=== PATIENT | female | born 1995 | race African-American/Black ===

== ENCOUNTER 2017-04-17 12:42 | Emergency (ER) | payer OTHER ==
--- NOTE | ~2017-04-17 | CT2 ---
[facility] A Service of [facility] & [facility] RADIOLOGY TEXT RESULTS PATIENT: LEANA SMITH LOCATION: SED : [birth year] UNIT #: [id number] AGE: [address]: Sam Mejias MD SEX: F ORDER DR: [id number] [address] [id number] [id number] MR#: [id number] Acc #: [id number] NAME: LEANA SMITH : 1995 SEX: F STUDY DATE/TIME: 04/17/2017 14:30 UNIT: SED ROOM: STUDY DESCRIPTION: CT Abd and Pelv W Cont Attending Physician: Sam Mejias M.D. Ordering Physician: Sam Mejias M.D. Primary Care Physician: Kiera Nieto M.D. MEDICAL IMAGING REPORT This report is preliminary unless electronic signature is present. EXAM CT abdomen and pelvis 04/17/2017 HISTORY Pain. Pelvic pain on and off for [address] abdomen and pelvis performed with intravenous administration of 100 mL Isovue-370. Enteric contrast not administered. Study limited in the absence of enteric contrast. No comparisons. This CT exam was performed with one or more of the following radiation dose reduction techniques: automatic exposure control, adjustment of mA and/or kV according to patient size, and iterative reconstruction. FINDINGS Inferior heart and pericardium unremarkable. Lung bases clear. Liver, gallbladder, spleen, pancreas, adrenal glands, kidneys unremarkable. CT Pelvis: No inguinal adenopathy. Urinary bladder unremarkable. Trace amount of free fluid in pelvis. Likely physiologic in nature and not a drainable fluid collection. Uterus unremarkable. Small subcentimeter follicular cysts suggested in bilateral otherwise unremarkable ovaries. No pelvic or retroperitoneal adenopathy. Distal esophagus, stomach, small bowel, appendix: unremarkable. Vascular structures unremarkable. Bony structures show no acute abnormality. Mild levoscoliosis may be positional in nature. IMPRESSION 1. Trace amount of free fluid in the pelvis. Likely physiologic in nature and not a drainable fluid collection. Pelvic structures otherwise notable only for tiny bilateral ovarian follicular cysts. No suspicious adnexal findings. 2. Gallbladder, pancreas, kidneys, appendix normal. [facility] A Service of [facility] & [facility] RADIOLOGY TEXT RESULTS PATIENT: LEANA SMITH [place] [facility] [place] [birth year] UNIT #: [id number] AGE: [address]: Sam Mejias MD SEX: F ORDER DR: 3. Remainder of alimentary canal unremarkable. 4. See remainder of incidental findings in body of report above. 1. Dictated by... Evaristo Mccabe M.D. THIS IS AN ELECTRONICALLY VERIFIED REPORT Evaristo Mccabe M.D. at 04/18/2017 7:52 PM Donna TD: 04/17/2017 16:29 JOB #: [id number] MEDICAL IMAGING REPORT Page 1 of 1
[~2017-04-17 12:42] MED LIST: BUSPAR; IBUPROFEN400 MG PO; VISTARIL; ZOFRAN ODT4 MG; ZOFRANODT PO; ZOLOFT
[2017-04-17 13:17] LABS: URINE SOURCE CLEAN CATCH
[2017-04-17 13:20] LABS: URINE APPEARANCE HAZY; URINE BILIRUBIN NEG (NEG); URINE BLOOD 3+ (NEG); URINE COLOR YELLOW; URINE GLUCOSE NEG (NORM); URINE KETONE NEG (NEG); URINE LEUKOCYTE ESTERASE NEG (NEG); URINE NITRATE NEG (NEG); URINE PH 5.5 (5-8); URINE PROTEIN 1+ (NEG); URINE SPECIFIC GRAVITY >=1.030 (1.003-1.035)
[2017-04-17 13:24] LABS: MICRO INDICATED? YES
[2017-04-17 13:25] LABS: CULTURE INDICATED? YES; URINE BACTERIA 1+ (NEG); URINE MUCUS PRESENT; URINE RBC 50-100 /[HPF] (0-2); URINE SQUAMOUS EPITHELIAL CELL MODERATE /[HPF]
[2017-04-17 13:58] LABS: BASOPHIL# 0.1 X10e3 (0-0.3); BASOPHIL% 1.4 % (0-2.5); EOSINOPHIL# 0.2 X10e3 (0-0.7); EOSINOPHIL% 3.4 % (0.0-7.0); HEMATOCRIT 38.7 % (35.0-45.0); LYMPHOCYTE# 2.5 X10e3 (1.0-3.5); LYMPHOCYTE% 45.1 % (17.0-45.0); MEAN CELL VOLUME 83.7 FL (83-96); MEAN CORPUSCULAR HEMOGLOBIN 28.1 PG (28-34); MEAN CORPUSCULAR HGB CONC 33.6 g/dL (30-36); MEAN PLATELET VOLUME 7.7 FL (6.5-11.5); MONOCYTE# 0.4 X10e3 (0-1.0); MONOCYTE% 7.9 % (3.0-12.0); NEUTROPHIL# 2.4 X10e3 (1.5-7.1); NEUTROPHIL% 42.2 % (40-75); PLATELET COUNT 291 X10e3 (140-420); RED BLOOD COUNT 4.63 X10e (3.90-5.30); RED CELL DISTRIBUTION WIDTH 14.9 % (11.0-15.5); WHITE BLOOD COUNT 5.6 X10e3 (4.0-10.5)
[2017-04-17 14:00] LABS: DIFF IND NO
[2017-04-17 14:19] LABS: BILIRUBIN, DIRECT 0.2 mg/dL (0.0-0.2); BILIRUBIN,INDIRECT 0.2 mg/dL (0.0-0.9); BILIRUBIN,TOTAL 0.4 mg/dL (0.2-2.0); BUN/CREATININE RATIO 16.25; CALCIUM SERUM 9.6 mg/dL (8.4-10.2); CREATININE SERUM 0.8 mg/dL (0.6-1.4); GLOM FILT RATE Estimated 123.1 mL/min (>60); POTASSIUM 3.6 mmol/L (3.5-5.1); PROTEIN TOTAL SERUM 8.2 g/dL (6.0-8.3)
[2017-04-18 23:31] LABS: CHLAMYDIA TRACH Not Detected (Not Detected); N GONOR Not Detected (Not Detected)
== END 2017-04-17 16:06 | disposition home or self-care (01) ==
LOC: SED 12:42
PROVIDERS: Emergency Medicine
DX: N83.202 Unspecified ovarian cyst, left side (principal); N83.201 Unspecified ovarian cyst, right side; F17.210 Nicotine dependence, cigarettes, uncomplicated
CPT/HCPCS: 36415; 74177; 80048; 80076; 81003; 83690; 84703; 85025; 87086; 87491; 87591; 87808; 87905; 99284; Q9967

== ENCOUNTER 2017-05-20 08:49 | Emergency (ER) | payer OTHER | END 2017-05-20 09:23 | disposition home or self-care (01) | LOC: SED 08:49 | DX: R51 Headache (principal) | CPT/HCPCS: 99283 ==